=== PATIENT | female | born 1990 ===

== ENCOUNTER → 2020-03-24 | Outpatient (CLI) | payer OTHER ==
[~2020-03-24] MED LIST: BIRTH CONTROL PILL PO; IBUP800; PRENATAL TABLE1 EAC2 PO
[2020-03-26 00:11] LABS: CHLAMYDIA TRACHOMATIS, NAA Negative (Negative)
== END | disposition home or self-care (01) ==
LOC: LAB 11:15 → LAB SHORT 11:15
PROVIDERS: Family Medicine
DX: Z01.419 Encounter for gynecological examination (general) (routine) without abnormal findings (principal); Z33.1 Pregnant state, incidental
CPT/HCPCS: 87491; 87591; G0123

== ENCOUNTER 2020-10-04 04:51 | Inpatient (IN) | payer OTHER ==
[~2020-10-04] VITALS: Ht 160 cm; Wt 80.3 kg
[~2020-10-04 04:51] MED LIST changes: -PRENATAL TABLE1 EAC2 PO
[2020-10-04] MEDS ORDERED: PRENATAL TABLE1 EAC2 PO (05:23)
[2020-10-04 06:06] LABS: BASOPHILS ABSOLUTE AUTO 0.03 K/mm3 (0.00-0.23); BASOPHILS PERCENT AUTO 0 % (0-2); EOSINOPHILS ABSOLUTE AUTO 0.06 K/mm3 (0.00-0.68); EOSINOPHILS PERCENT AUTO 0 % (0-6); Hematocrit 33.7 % (33.0-51.0); Hemoglobin 11.2 g/dL (11.5-16.0); IMMATURE GRAN ABSOLUTE AUTO 0.19 K/mm3 (0.00-0.10); IMMATURE GRAN PERCENT AUTO 1 % (0-1); LYMPHOCYTES ABSOLUTE AUTO 2.73 K/mm3 (0.84-5.20); LYMPHOCYTES PERCENT AUTO 18 % (21-46); MONOCYTES ABSOLUTE AUTO 0.81 K/mm3 (0.16-1.47); MONOCYTES PERCENT AUTO 5 % (4-13); Mean Corpuscular HGB 30.1 pg (26.0-34.0); Mean Corpuscular HGB Conc 33.2 g/dL (31.5-36.5); Mean Corpuscular Volume 91 fL (80-100); Mean Platelet Volume 10.9 fL (9.1-12.4); NEUTROPHILS ABSOLUTE AUTO 11.59 K/mm3 (1.96-9.15); NEUTROPHILS PERCENT AUTO 75 % (41-73); Platelet Count 314 K/mm3 (150-400); RDW Coefficient Variation 12.9 % (11.7-14.2); RDW Standard Deviation 42.4 fL (35.1-46.3); Red Blood Cell Count 3.72 M/mm3 (3.80-5.20); White Blood Cell Count 15.41 K/mm3 (4.00-11.30)
[2020-10-04 06:17] LABS: SARS-Cov-2 (COVID-19) PCR, MMC NEGATIVE (NEGATIVE)
--- NOTE | 2020-10-04 07:53 | NUR ---
MULTIPLE ATTEMPTS MADE BY [facility] RN TO START IV WHEN PT WAS ADMITTED. AFTER 4 POKES PT REFUSED ANOTHER ATTEMPT AND AGREED TO ANOTHER ATTEMPT OF A START IF INDICATED.
--- NOTE | 2020-10-04 21:38 | NUR ---
MOM HOLDING BABY. BABY WAS SPITTY. MOM WAS CONCERNED BABY WAS CHOKING. BABY WAS NOT. NURSE CONFIRMED.
[2020-10-05 05:35] LABS: Hematocrit 30.8 % (33.0-51.0); Hemoglobin 10.3 g/dL (11.5-16.0); Mean Corpuscular HGB 30.7 pg (26.0-34.0); Mean Corpuscular HGB Conc 33.4 g/dL (31.5-36.5); Mean Corpuscular Volume 92 fL (80-100); Mean Platelet Volume 10.9 fL (9.1-12.4); Platelet Count 240 K/mm3 (150-400); RDW Standard Deviation 42.7 fL (35.1-46.3); Red Blood Cell Count 3.36 M/mm3 (3.80-5.20); White Blood Cell Count 13.23 K/mm3 (4.00-11.30)
--- NOTE | 2020-10-05 09:15 | NUR ---
D/C HOME WITH BABY
== END 2020-10-05 09:20 | disposition home or self-care (01) | DRG 807 ==
LOC: OBS 04:51 → BC 04:54 → OBS 05:03 → BC 05:05
PROVIDERS: ADMIT Registered Nurse Community Health
PROC: 10E0XZZ Delivery of Products of Conception, External Approach (ICD-10-PCS; principal; 2020-10-04)
PROC: 10907ZC Drainage of Amniotic Fluid, Therapeutic from Products of Conception, Via Natural or Artificial Opening (ICD-10-PCS; 2020-10-04)
PROC: 0HQ9XZZ Repair Perineum Skin, External Approach (ICD-10-PCS; 2020-10-04)
DX: O76 Abnormality in fetal heart rate and rhythm complicating labor and delivery (principal); Z37.0 Single live birth; O70.0 First degree perineal laceration during delivery; Z3A.39 39 weeks gestation of pregnancy; Z20.822 Contact with and (suspected) exposure to COVID-19; Z67.10 Type A blood, Rh positive; Z88.2 Allergy status to sulfonamides
CPT/HCPCS: 36415; 59025; 85025; 85027; 86850; 86900; 86901; A9270; J2590; J7120; U0004

== ENCOUNTER → 2024-05-16 | Outpatient (CLI) | payer OTHER ==
[~2024-05-16] MED LIST changes: +Adipex-P37.5 M1; +PRENATAL TABLE1 EAC2 PO
== END ==
LOC: LAB 19:43 → LAB SHORT 19:43
DX: R30.0 Dysuria (principal)
CPT/HCPCS: 87077; 87086; 87186